=== PATIENT | male | born 1990 | race African-American/Black ===

== ENCOUNTER 2022-12-24 16:02 | Emergency (ER) | payer OTHER, SELFPAY ==
--- NOTE | 2022-12-24 16:23 | ED.GENADULT ---
HPI - General Adult General Chief complaint: Extremity Problem,Nontraumatic Stated complaint: bacterial infection x3 worst sym. Time Seen by Provider: 12/24/22 16:16 History of Present Illness HPI narrative: 32-year-old male nonsmoker with prior right MCL surgery presents with a chief complaint of a recent infection in his right knee which is greatly improved but he complains of some subjective fever, mild headache, pain between his eyes, some nasal congestion. He denies any sore throat. He is had no chest pain, shortness of breath or cough. He denies nausea, vomiting or diarrhea. States that he had a right MCL surgery in 2008 or 2009 and soon after developed infection at the incision site which was treated. He had been fine and well and free of complaint up until about 1 week ago when he started having a small amount of drainage from the incision site. He went to [facility], it was cultured and he was put on Bactrim and now he is significantly improved regarding his knee but has other symptoms as noted above. He has full range of motion of the knee, there is no swelling, has not been draining, there is no redness or red streaks. Related Data Allergies Allergy/AdvReac Type Severity Reaction Status Date / Time No Known Drug Allergies Allergy Verified 12/24/22 16:25 Review of Systems Review of Systems Narrative: GENERAL: See HPI HEENT: See HPI RESPIRATORY: Denies dyspnea, cough, wheezing, hemoptysis, sputum. CARDIOVASCULAR: Denies chest pain, palpitations, orthopnea, edema, GASTROINTESTINAL: Denies nausea, vomiting, abdominal pain, diarrhea, constipation, melena. : Denies dysuria, frequency, incontinence, hematuria, urinary retention. MUSCULOSKELETAL: See HPI SKIN: See HPI NEUROLOGIC: Denies weakness, headache, numbness, change in speech, confusion, seizures, incoordination. PSYCHIATRIC: No concerning psychosocial issues. 12 point review of systems is negative except for those stated above Patient History Social History Smoking Status: Never smoker Exam Narrative Exam Narrative: GENERAL: [32] year old patient appears stated age. Well-developed patient, in mild distress. HEAD: Atraumatic. Normocephalic. EYES: Pupils equal round and reactive. Extraocular motions intact. No scleral icterus. No injection or drainage. ENT: Nose without bleeding, purulent drainage. Throat without erythema, tonsillar hypertrophy or exudate. Airway patent. NECK: Trachea midline. Non tender, no meningeal signs CARDIOVASCULAR: Regular rate and rhythm without murmurs, gallops, or rubs. RESPIRATORY: Clear to auscultation. Breath sounds equal bilaterally. No wheezes, rales, or rhonchi. GASTROINTESTINAL: Abdomen soft, non-tender, nondistended. EXTREMITIES: Full painless range of motion of right knee without swelling, erythema or tenderness, no medial or lateral joint line tenderness. There is a very small healed scab at a prior incision site without fluctuance or drainage, no ability to culture. BACK: Nontender without deformity or crepitance. No flank tenderness. NEURO: AOx3. SKIN: No rash or erythema of visible areas Initial Vital Signs Initial Vital Signs: Vital Signs Temperature 98.2 F 12/24/22 16:25 Pulse Rate 70 12/24/22 16:25 Respiratory Rate 18 12/24/22 16:25 Blood Pressure 135/85 12/24/22 16:25 Pulse Oximetry 99 12/24/22 16:25 Oxygen Delivery Method 12/24/22 16:25 Course Orders Ordered: ED Orders 12/24/22 16:19 Covid-19 + FLU A/B + RSV - PCR Stat 12/24/22 16:31 XR knee RT 3V Stat Vital Signs Vital signs: Vital Signs - 8 hr 12/24/22 16:25 Temperature 98.2 F Pulse Rate 70 Respiratory Rate 18 Blood Pressure 135/85 Pulse Oximetry 99 Oxygen Delivery Method Room Air Medical Decision Making Lab Data Labs: Lab Results 12/24/22 Range/Units 16:19 SARS-CoV-2 (PCR) Negative (Negative) Influenza A (RT-PCR) Flu a negative (NEGATIVE) Influenza B (RT-PCR) Flu b negative (NEGATIVE) RSV (PCR) Negative (Negative) Imaging Data Extremity x-ray #1: Radiologist's Impression: ? Chart Viewer Diagnostics Subcategory All Activity ??:?? All Time ??:?? All Subcategories Filter Laboratory Imaging Microbiology Pathology Blood Bank Tests Cardiovascular Other Specialty DATE TYPE STATUS REF RANGE/AUTHOR Hx Today 16:31 Knee X-Ray Signed Dutch Manning Jeffrey ED 32, M?1990 MRN#? [id number] [facility],?Main ED??R07?? Extremity Problem,Nontraumatic Acc#? [id number] Resus Status Not Ordered No Hx Avail Special Indicators No Data to Display Home Meds Prescription Monitoring Program No Data to Display Allergies No Known Drug Allergies Problems No Data to Display Vital Signs Today 16:25 BP 135/85? Pulse 70? Resp 18? Temp 98.2 F? O2 Sat 99? Delivery Room Air? Diagnostics Reports Axel Puckett??32??M??1990 ? Allergy/Adv: No Known Drug Allergies Close Knee X-Ray (Signed) Dutch Manning - 12/24/22 Launch?[address] [address] XRay Report Signed Patient: Axel Puckett MR#: [id number] : 1990 Acct:[id number] Age/Sex: 32 / M Date of Service: 12/24/22 Loc: ED Accession Number: [id number] ?? Procedure: XR knee RT 3V Ordering Provider: Guicho Lovett D.O. PROCEDURE:? XR KNEE RT 3V ? INDICATIONS:? possible infection, prior MCL surgery, draining ? TECHNIQUE:? 3 views of the knee were acquired.? ? COMPARISON:? None. ? FINDINGS:? ? Normal patellar height and position.? No acute or suspicious bone lesion.? ACL reconstruction changes.? No knee joint effusion.? No significant soft tissue abnormality. ? ? IMPRESSION:? No acute finding. ? ? Dictated by: Dutch Manning M.D. on 12/24/2022 at 16:46 ? ? Approved by: Dutch Manning M.D. on 12/24/2022 at 16:47 ? [facility] Narrative Medical decision making narrative: 32-year-old male some upper respiratory type symptoms and subjective fever in the relative recent aftermath of it infection of his right knee Multiple etiologies for patient's symptoms considered including, but not limited to: [Flu, COVID, RSV, right knee cellulitis, much less likely hardware infection or septic arthritis] Prior Charts reviewed: None available Labs reviewed and interpreted by myself: Respiratory swabs negative Imaging reviewed: X-ray demonstrates no abnormality such as fluid or abnormal foreign body Patient with recent drainage from a prior surgical scar and chief complaint of feeling generally unwell and concern of worsening infection. The patient's knee exam is very reassuring and he has no swelling, redness or pain. There is a healed scab where he reports recent drainage but with forceful palpation there is no recurrence of drainage, nothing to be cultured. Though he feels generally unwell it is hard to length to though the coincidence is hard to ignore. He has negative respiratory swabs. Full septic workup is not indicated, likelihood of septic arthritis extremely low given such reassuring exam. Findings and discharge diagnosis discussed with patient/family followed by verbalization of understanding Return precautions discussed with patient/family whom verbalize understanding of diagnosis and plan Discharge Plan Departure Patient Disposition: Home Clinical Impression: Wound discharge, Adenopathy, cervical Instructions: DI for Wound Infection Activity Restrictions/Additional Instructions: *You have been diagnosed with [recent right knee infection. As we discussed your history and physical exam are very reassuring, the swabs for flu, COVID and RSV are negative. *What to do: *Please continue to take your regular medications as directed. [ ] New medication prescriptions sent to your pharmacy: [ ] [ ] New medication written as a paper prescription [ ] No new medications given *Please follow up with your primary care provider in 2-3 days, call for an appointment. Let them know you were seen in the Emergency Department and that we ask that you be seen in follow up. We will electronically transmit a record of today's note if your PCP is in our system *If you do not have a primary care provider please contact the [facility] Resource line at [phone]. They will ask some questions about your medical history and help get you set up with a doctor in the community. *Return to Emergency Department if you should have any new, worsening or concerning symptoms, such as [fever greater than 101 F, shaking chills, worsening pain, persistent vomiting or other bothersome symptoms] Stand Alone Forms: Patient Portal/API
[2022-12-24 16:25] VITALS: BP 135/85; PULSE 70; RESP 18; TEMP 36.8; O2SAT 99
--- NOTE | 2022-12-24 16:31 | DI.RAD.S_ITS ---
PROCEDURE: XR KNEE RT 3V INDICATIONS: possible infection, prior MCL surgery, draining TECHNIQUE: 3 views of the knee were acquired. COMPARISON: None. FINDINGS: Normal patellar height and position. No acute or suspicious bone lesion. ACL reconstruction changes. No knee joint effusion. No significant soft tissue abnormality. IMPRESSION: No acute finding. Dictated by: Dutch Manning M.D. on 12/24/2022 at 16:46 Approved by: Dutch Manning M.D. on 12/24/2022 at 16:47
[2022-12-24 17:19] LABS: COVID-19 CEPHEID 4-PLEX PCR Negative (Negative); Influenza A - CEPHEID Flu A NEGATIVE (NEGATIVE); Influenza B - CEPHEID Flu B NEGATIVE (NEGATIVE); Respiratory Syncytial Virus Negative (Negative)
== END 2022-12-24 17:40 | disposition home or self-care (01) ==
PROVIDERS: Emergency Provider Emergency Medicine
DX: R59.0 Localized enlarged lymph nodes (principal); T81.49XA Infection following a procedure, other surgical site, initial encounter; Z20.822 Contact with and (suspected) exposure to COVID-19
CPT/HCPCS: 0241U; 73562; 99283

== ENCOUNTER → 2024-03-11 20:07 | Outpatient (CLI) | payer OTHER, SELFPAY ==
--- NOTE | 2024-03-11 | DI.MRI.S_ITS ---
PROCEDURE: MR KNEE RT WO/W CON INDICATIONS: NON HEALING WOUND TECHNIQUE: Noncontrast sagittal PD fast spin echo and T2 fast spin echo with fat saturation, sagittal 3-D FLASH with fat saturation; coronal T1 spin echo and PD fast spin echo with fat saturation, and axial T1 spin echo and PD fast spin echo with fat saturation through the knee. Post-contrast axial, coronal, and sagittal T1 spin echo with fat saturation through the knee. COMPARISON: None. FINDINGS: Image quality: Excellent. Menisci: The medial and lateral menisci demonstrate normal morphology and internal signal. The meniscal root ligaments appear intact. Cruciate ligaments: Patient is status post prior ACL reconstruction. Thickened ACL graft in its mid to distal portion is seen. No ACL graft rupture. The PCL is intact. Medial structures: The medial collateral ligament appears thickened. Visualized portions of the pes anserinus tendons appear normal. No abnormal bursal fluid. Lateral structures: The lateral collateral ligament appears thickened near its femoral insertion. The long and short heads of the biceps femoris tendon appear intact. The popliteus tendon appears normal. Iliotibial band appears normal. Anterior structures: The quadriceps tendon is intact. Thickened distal patellar tendon at its anterior tibial insertion is seen. Patellar alignment is normal. No femoral trochlear dysplasia or ventral trochlear prominence. No edema in the infrapatellar fat pad. Bones and cartilage: Postsurgical changes are noted in lateral femoral condyle and medial portion of proximal tibia. There is marrow edema involving proximal tibial shaft extending to anterolateral cortex at surgical hardware insertion site and show heterogeneous marrow enhancement in this area concerning for osteomyelitis. Fluid distending tibial tunnel is also noted concerning for tibial tunnel cyst. No signal abnormality is seen in distal femur or femoral tunnel. No signal abnormality or abnormal enhancement in proximal fibular shaft is seen. No acute fracture or dislocation. Articulating cartilages normal in thickness. Joint space: There is small knee joint fluid. No Henao's cyst. Normal appearing synovial plicae are incidentally noted. Extensive subcutaneous soft tissue edema and swelling with full-thickness ulceration/wound involving anterior medial aspect of proximal lower leg at the site of surgical hardware insertion and show mild adjacent soft tissue enhancement and edema. No discrete drainable abscess collection. IMPRESSION: 1. Extensive cellulitis surrounding surgical wound in anterior medial aspect of proximal lower leg without discrete drainable abscess collection. 2. Suggestion of osteomyelitis involving proximal tibial shaft surrounding tibial tunnel and surgical hardware. 3. Suggestion of low-grade partial-thickness tear involving distal ACL graft at the tibial insertion and within the tibial tunnel. Suggestion of tibial tunnel cysts. No signal abnormality is seen in femoral tunnel. 4. No enhancing soft tissue mass or drainable fluid collection. No other area of abnormal intraosseous enhancement. 5. The medial and lateral menisci are intact. 6. Low-grade MCL sprain. Low-grade proximal LCL sprain. 7. Distal patellar tendinosis at its anterior tibial insertion. Dictated by: Blaze Smith M.D. on 03/12/2024 at 11:41 Approved by: Blaze Smith M.D. on 03/12/2024 at 11:50
== END ==
PROVIDERS: Referring Provider Preventive Medicine Aerospace Medicine; Visit Provider Preventive Medicine Aerospace Medicine
DX: T81.89XA Other complications of procedures, not elsewhere classified, initial encounter (principal); L03.115 Cellulitis of right lower limb; S83.411A Sprain of medial collateral ligament of right knee, initial encounter; S83.421A Sprain of lateral collateral ligament of right knee, initial encounter; R69 Illness, unspecified
CPT/HCPCS: 73723; A9579